=== PATIENT | male | born 1970 | race Caucasian/White ===

== ENCOUNTER 2021-02-23 07:03 | Emergency (ER) | payer OTHER ==
[~2021-02-23] VITALS: Ht 177.8 cm; Wt 68.0 kg
[2021-02-23] MEDS ORDERED: CEPHALEXIN500 MG PO (10:35)
[2021-02-23 10:41] VITALS: BP 124/68
== END 2021-02-23 10:42 | disposition home or self-care (01) ==
LOC: M.ERS 07:03
DX: T14.8XXA Other injury of unspecified body region, initial encounter (principal); F17.210 Nicotine dependence, cigarettes, uncomplicated; W22.8XXA Striking against or struck by other objects, initial encounter; Y93.89 Activity, other specified; Y92.89 Other specified places as the place of occurrence of the external cause; Y99.8 Other external cause status